=== PATIENT | male | born 1955 | race Caucasian/White ===

== ENCOUNTER 2017-08-16 12:42 | Outpatient (CLI) | payer OTHER ==
[2017-08-16] MEDS ORDERED: ALBUTEROL NEB 2.5 MG/3 ML INH ONE (14:00)
== END 2017-08-16 12:43 | disposition home or self-care (01) ==
LOC: RT 12:42
PROVIDERS: ATTEND Family Medicine
DX: J20.9 Acute bronchitis, unspecified (principal)
CPT/HCPCS: 94010; 94729

== ENCOUNTER 2019-02-15 09:05 | Day surgery (SDC) | payer MEDICARE, OTHER ==
[2019-02-15] MEDS ORDERED: CEFAZOLIN SODIUM IN 0.9 % NACL 2 GM/100 ML BAG IV ONE (09:06)
--- NOTE | 2019-02-15 09:32 | ANESTHESIA ---
Pre-Anesthesia VS, & Labs - Diagnosis umbilical hernia - Procedure umbilical hernia repair with mesh Vital Signs: Temp Pulse Resp BP Pulse Ox 37 C 101 H 20 138/100 H 95 02/15/19 09:11 02/15/19 09:11 02/15/19 09:11 02/15/19 09:11 02/15/19 09:11 Height 5 ft 7 in Weight (kg) 91.1 kg - NPO >8 hours Home Medications and Allergies Home Medications: Ambulatory Orders No Known Home Medications 01/29/19 No Known Home Medications 01/29/19 Allergies/Adverse Reactions: Allergies Allergy/AdvReac Type Severity Reaction Status Date / Time No Known Drug Allergies Allergy Verified 01/29/19 11:33 Anes History & Medical History - Anesthetic History Anesthesia Complications: reports: No previous complications Family history of Anesthesia Complications: Denies - Medical History Cardiovascular: reports: None Pulmonary: reports: None Gastrointestinal: reports: Colon polyps Urinary: reports: None Musculoskeletal: reports: None Endocrine/Autoimmune: reports: None Skin: reports: None Smoking Status: Former smoker (quit 2 weeks ago) - Surgical History General: Colonoscopy Exam General: Alert Dental: WNL Mouth Opening: Greater than 4 Fingerbreadths Neck Mobility: Normal Mallampati classification: II Thyromental Distance: greater than 6 cm Respiratory: Lungs clear Cardiovascular: Regular rate, Normal S1, Normal S2 Plan Anesthesia Type: MAC Consent for Procedure(s) Verified and Reviewed: Yes Code Status: Attempt Resuscitation ASA classification: 2-Mild systemic disease Is this case an emergency?: Yes
[2019-02-15] MEDS ORDERED: LACTATED RINGERS 1,000 ML IV ONE ×3 (09:34→11:15)
[2019-02-15] MEDS ORDERED: ceFAZolin 1 GM VIAL ONE (09:47)
[2019-02-15] MEDS ORDERED: LIDOCAINE 1% 50 ML MDV ONE (09:47)
[2019-02-15] MEDS ORDERED: BUPIVACAINE 0.5%-EPI 1:200000 PF 10 ML VIAL ONE (09:47)
[2019-02-15] MEDS ORDERED: KETAMINE 500 MG/10 ML VIAL IVP ONE (09:48)
[2019-02-15] MEDS ORDERED: fentaNYL 100 MCG/2 ML VIAL IVP ONE (09:48)
[2019-02-15] MEDS ORDERED: LIDOCAINE-MPF 2% 5 ML VIAL IM ONE (09:48)
[2019-02-15] MEDS ORDERED: PROPOFOL 200 MG/20 ML VIAL IVP ONE (09:48)
[2019-02-15] MEDS ORDERED: MIDAZOLAM 2 MG/2 ML VIAL IVP ONE (09:48)
[2019-02-15] MEDS ORDERED: BUPIVACAINE 0.5%-EPI 1:200000 PF 30 ML VIAL SUBQ ONE (10:05)
[2019-02-15] MEDS ORDERED: LIDOCAINE 1% 50 ML MDV SUBQ ONE (10:06)
[2019-02-15] MEDS ORDERED: oxyCODONE 5 MG TABLET PO PRN (10:41)
[2019-02-15] MEDS ORDERED: IBUPROFEN 600 MG TABLET PO PRN (10:41)
[2019-02-15] MEDS ORDERED: ACETAMINOPHEN 325 MG TABLET PO PRN (10:41)
[2019-02-15] MEDS ORDERED: ONDANSETRON 4 MG/2 ML VIAL IVP PRN (10:41)
--- NOTE | 2019-02-15 11:28 | OPERATIVE REPORT ---
DATE OF SERVICE: 02/15/2019 Physician: Oneal Ash MD PREOPERATIVE DIAGNOSIS: Symptomatic umbilical hernia. POSTOPERATIVE DIAGNOSIS: Symptomatic incarcerated umbilical hernia. PROCEDURE PERFORMED: Open repair of same with Ventralex ST hernia patch. ANESTHESIA: Local plus monitored anesthesia care by Brian Machado CRNA. SURGEON: Oneal Ash MD ESTIMATED BLOOD LOSS: 5 mL COMPLICATIONS: None. FINDINGS: A 3 cm diameter hernia sac was present containing preperitoneal fat that was incarcerated. The umbilical fascial defect was 2 cm in diameter. A 4.[address] hernia patch was used for the reconstruction. INDICATIONS: Patient is a 63-year-old gentleman with a history of an increasingly painful and tender umbilical bulge. Evaluation revealed a partially reducible umbilical mass consistent with an umbilical hernia. He was advised to undergo repair with prosthetic mesh to reduce the risk of recurrence. TECHNIQUE: After informed consent, patient was taken to the operating room where he was sedated and monitored. Preoperative preparation included application of sequential calf compression boots and administration of 2 grams cefazolin intravenously within an hour of the incision. His abdomen had been clipped in the ASU and was prepped with iodoform solution, following which a periumbilical block was instituted using a total of 30 mL of a 50:50 combination of 1% lidocaine plain and 0.5% Marcaine with epinephrine. Patient's abdomen was then re-prepared with ChloraPrep solution and draped in the usual sterile fashion. A curvilinear transverse incision was made along the inferior edge of the umbilicus for a total distance of 4-5 cm and carried down through subcutaneous tissues. Hemostasis was achieved with electrocautery. The umbilical dermis was dissected off of the underlying hernia sac. The hernia sac was mobilized circumferentially down to the neck and the anterior fascia exposed circumferentially. The hernia sac was entered and contents initially could not be reduced. The fascial defect was enlarged laterally for an additional 0.5 cm. This allowed hernia contents to be reduced into the preperitoneal space, which was then enlarged circumferentially to allow placement of the 4.3 cm diameter Ventralex patch in the preperitoneal location, after the preperitoneal space had been adequately developed and hemostasis assured, the wound was irrigated with antibiotic solution containing 1 gram cefazolin per liter and the above- mentioned patch was soaked in antibiotic solution, then placed in a position in a preperitoneal location, following which using the straps to hold the mesh against the midline fascia. The fascial edges were reapproximated transversely with 3 interrupted 0 Ethibond sutures, incorporating the strap with each suture. Excess strap was excised and discarded. After the fascial edges had been reapproximated and hemostasis assured, the wound was again irrigated with antibiotic solution, following which wound closure was accomplished in layers using 2-0 Vicryl to reapproximate the umbilical dermis to the anterior fascia and to reapproximate the deep subcutaneous fat, followed by 3-0 Vicryl to reapproximate the superficial subcutaneous fatty tissue, followed by 4-0 Monocryl subcuticular skin closure, followed by Dermabond. The procedure was then terminated, and patient transferred out of the operating room in satisfactory condition. Sponge and needle counts were correct x2. No drains were used. cc: Sherwin Urena MD TD: 02/15/2019 10:50 [facility]
[2019-02-15] MEDS ORDERED: oxyCODONE 5 MG TABLET ONE (11:39)
[2019-02-15 12:39] VITALS: BP 118/90
== END 2019-02-15 09:06 | disposition home or self-care (01) ==
LOC: SDS 09:05
PROVIDERS: ATTEND Internal Medicine Gastroenterology
PROC: 0WUF0JZ Supplement Abdominal Wall with Synthetic Substitute, Open Approach (ICD-10-PCS; principal; 2019-02-15 10:30)
DX: K42.9 Umbilical hernia without obstruction or gangrene (principal); F17.210 Nicotine dependence, cigarettes, uncomplicated; H91.93 Unspecified hearing loss, bilateral; A60.00 Herpesviral infection of urogenital system, unspecified
CPT/HCPCS: 49587; A9270; C1781; J0690; J7120

== ENCOUNTER 2020-08-21 16:35 | Outpatient (CLI) | payer OTHER, MEDICARE | END 2020-08-21 16:36 | disposition home or self-care (01) | LOC: COV 16:35 | PROVIDERS: ATTEND Ophthalmology | DX: Z01.812 Encounter for preprocedural laboratory examination (principal); H25.812 Combined forms of age-related cataract, left eye; Z20.822 Contact with and (suspected) exposure to COVID-19 ==

== ENCOUNTER 2020-08-24 08:01 | Day surgery (SDC) | payer OTHER, MEDICARE ==
[~2020-08-24 08:01] MED LIST: KETOROLAC 0.45% OPHTH DROPS ONE; PHENYLEPHRINE 2.5% OPHTH 2 ML DROPS ONE; PROPARACAINE 0.5% OPHTH DROPS 15 ML ONE
[2020-08-24] MEDS ORDERED: LACTATED RINGERS 500 ML IV ONE ×2 (08:09→09:30)
[2020-08-24] MEDS ORDERED: CYCLOPENTOLATE 2% OPHTH DROPS 2 ML LEFTEYE ONE (08:29)
[2020-08-24] MEDS ORDERED: BSS/LIDOCAINE/EPINEPHRINE 1 ML SYRINGE IO ONE (08:30)
[2020-08-24] MEDS ORDERED: TRIAMCIN/MOXIFLOX OPHTHALMIC 0.6 ML VIAL IO ONE ×2 (08:30→11:20)
[2020-08-24] MEDS ORDERED: CHONDR SULF/HYALURONATE SYRINGE IO ONE (08:30)
[2020-08-24] MEDS ORDERED: VANCOMYCIN OPHTHALMI 8MG/0.8ML 8 MG/0.8 ML SYRINGE IO ONE ×2 (08:30→11:21)
[2020-08-24] MEDS ORDERED: BRIMONIDINE 0.2% OPHTH DROPS 5 ML OPTH ONE (08:30)
[2020-08-24] MEDS ORDERED: EPINEPHrine 1 MG/ML AMP IR ONE (08:30)
[2020-08-24] MEDS ORDERED: TIMOLOL 0.5% OPHTH DROPS OPTH ONE (08:30)
[2020-08-24] MEDS ORDERED: PROPARACAINE 0.5% OPHTH DROPS 15 ML EACHEYE ONE (08:30)
--- NOTE | 2020-08-24 08:49 | ANESTHESIA ---
Pre-Anesthesia VS, & Labs - Diagnosis L cataract - Procedure L PhacoIOL Vital Signs: Temp Pulse Resp BP Pulse Ox 36.6 C 93 18 157/90 H 97 08/24/20 08:21 08/24/20 08:21 08/24/20 08:21 08/24/20 08:21 08/24/20 08:21 Height: 5 ft 7 in Weight (kg): 90 kg Body Mass Index: 31.1 BMI Classification: Obese - NPO >8 hours Home Medications and Allergies Home Medications: Ambulatory Orders Lisinopril/Hydrochlorothiazide [Zestoretic 10-12.5 mg Tablet] 1 each PO DAILY 0 08/24/20 Lisinopril/Hydrochlorothiazide [Zestoretic 10-12.5 mg Tablet] 1 each PO DAILY 08/24/20 Allergies/Adverse Reactions: Allergies Allergy/AdvReac Type Severity Reaction Status Date / Time No Known Drug Allergies Allergy Verified 08/24/20 08:17 Anes History & Medical History - Anesthetic History Anesthesia Complications: reports: No previous complications Family history of Anesthesia Complications: Denies Family history of Malignant Hyperthermia: Denies - Medical History Cardiovascular: reports: None Pulmonary: reports: None Gastrointestinal: reports: Colon polyps Urinary: reports: None Musculoskeletal: reports: None Endocrine/Autoimmune: reports: None Skin: reports: None Smoking Status: Former smoker (quit 2 weeks ago) - Surgical History General: reports: Colonoscopy Exam General: Alert, Oriented x3 Dental: WNL Mouth Openin Fingerbreadth Neck Mobility: Normal Mallampati classification: II Thyromental Distance: 4-6 cm Respiratory: Lungs clear Cardiovascular: Regular rate Plan Anesthesia Type: MAC Consent for Procedure(s) Verified and Reviewed: Yes Code Status: Attempt Resuscitation ASA classification: 2-Mild systemic disease Is this case an emergency?: No
[2020-08-24] MEDS ORDERED: MIDAZOLAM 2 MG/2 ML VIAL ONE ×2 (09:00→09:24)
[2020-08-24 09:47] VITALS: BP 142/84
--- NOTE | 2020-08-24 11:03 | OPERATIVE REPORT ---
DATE OF SERVICE: 08/24/2020 Physician: Uche Zamora MD PREOPERATIVE DIAGNOSIS: Complex, visually significant cataract, left eye. Complex due to a small pupil requiring mechanical pupil expansion with a Malyugin ring. This was his first cataract surgery. POSTOPERATIVE DIAGNOSIS: Complex, visually significant cataract, left eye. Complex due to a small pupil requiring mechanical pupil expansion with a Malyugin ring. This was his first cataract surgery. PROCEDURE: Phacoemulsification with posterior chamber intraocular lens implant, left eye. SURGEON: Uche Zamora MD. ANESTHESIA: Monitored anesthesia care. COMPLICATIONS: None. OPERATIVE INDICATIONS: This is a 64-year-old man with progressive vision loss in the left eye due to 1+ to 2+ nuclear sclerotic and 2+ anterior subcapsular cataract. Best corrected visual acuity was 20/40 with glare to hand motion vision in the left eye. Indications for surgery were overall decrease in vision, difficulty reading, difficulty tracking a golf ball, and foggy vision per patient. He was consented at length concerning risks and benefits of cataract surgery, after which he expressed a desire to proceed with surgery. OPERATIVE PROCEDURE: The patient was taken into OR #3 and placed under monitored anesthesia care. A surgical timeout was conducted, confirming correct patient, correct procedure, and correct surgical site. He was given topical anesthesia and prepped and draped in the usual sterile fashion. The eye was entered at the 6 o'clock and 3 o'clock positions. Intracameral Shugarcaine was injected into the anterior chamber followed by Viscoat. Because of the small pupil, a Malyugin ring was injected into the anterior chamber and engaged the pupil at 4 points to mechanically dilate the pupil. A continuous-tear curvilinear capsulorrhexis was performed. The nucleus was hydrodissected and phacoemulsified. The cortex was evacuated using automated infusion and aspiration. Provisc was injected in the capsular bag and a 21.0 diopter intraocular lens inserted in the bag. The Malyugin ring was then disengaged from the pupillary margin and removed from the anterior chamber. Infusion and aspiration were used to evacuate the viscoelastic materials. The eye was inflated to physiologic pressure using balanced salt solution and found to be watertight. Approximately 0.25 mL of a mixture of triamcinolone and moxifloxacin was injected transsclerally into the vitreous in the inferotemporal quadrant. An additional 0.55 mL of a mixture of triamcinolone, moxifloxacin, and vancomycin was injected subconjunctivally in the superior quadrant for infection and inflammation prophylaxis. Wound integrity was checked with Weck- Maria G sponges. The patient was taken from the operating room in good condition and given postoperative instructions. TD: 08/24/2020 11:01 MTDNabila
[2020-08-24] MEDS ORDERED: TIMOLOL 0.5% OPHTH DROPS ONE (11:20)
[2020-08-24] MEDS ORDERED: BRIMONIDINE 0.2% OPHTH DROPS 5 ML ONE (11:20)
[2020-08-24] MEDS ORDERED: EPINEPHrine 1 MG/ML AMP ONE (11:20)
[2020-08-24] MEDS ORDERED: BSS/LIDOCAINE/EPINEPHRINE 1 ML SYRINGE ONE (11:21)
--- NOTE | 2020-08-24 18:24 | ANESTHESIA POST OP EVALUATION ---
Anesthesia Post Eval - Post Anesthesia Eval Vitals: Last Vital Signs Temp 37.0 C 08/24/20 09:47 Pulse 85 08/24/20 09:47 Resp 16 08/24/20 09:47 BP 142/84 H 08/24/20 09:47 Pulse Ox 96 08/24/20 09:47 CV Function Including HR & BP: positive: Stable Pain Control: positive: Satisfactory Nausea & Vomiting: positive: Negative Mental Status: positive: Baseline Respiratory Status: Airway Patent Hydration Status: Satisfactory Anesthesia Complications: positive: None
== END 2020-08-24 08:02 | disposition home or self-care (01) ==
LOC: SDS 08:01
PROVIDERS: ATTEND Ophthalmology
DX: H25.811 Combined forms of age-related cataract, right eye (principal); I10 Essential (primary) hypertension; E66.9 Obesity, unspecified; Z68.31 Body mass index [BMI] 31.0-31.9, adult; F17.200 Nicotine dependence, unspecified, uncomplicated
CPT/HCPCS: 66982; A9270; J3490; J7120

== ENCOUNTER 2020-11-21 08:00 | Outpatient (CLI) | payer MEDICARE, OTHER ==
[2020-11-21 18:04] LABS: BASOPHILS % (AUTO) 0.5 %; EOSINOPHILS # (AUTO) 0.1 10^3/uL (0.0-0.7); EOSINOPHILS % (AUTO) 1.6 %; HCT - HEMATOCRIT 47.1 % (42.0-52.0); HGB - HEMOGLOBIN 16.3 g/dL (14.0-18.0); LYMPHOCYTES # (AUTO) 1.7 10^3/uL (1.5-3.5); LYMPHOCYTES % (AUTO) 21.7 %; MEAN CORPUSCULAR HEMOGLOBIN 33.1 pg (27.0-31.0); MEAN CORPUSCULAR HGB CONC 34.6 g/dL (32.0-36.0); MEAN CORPUSCULAR VOLUME 95.7 fL (80.0-94.0); MEAN PLATELET VOLUME 11.5 fL (7.4-11.4); MONOCYTES # (AUTO) 0.8 10^3/uL (0.0-1.0); MONOCYTES % (AUTO) 9.5 %; NEUTROPHILS # (AUTO) 5.3 10^3/uL (1.5-6.6); NEUTROPHILS % (AUTO) 66.4 %; PLT - PLATELET COUNT 206 10^3/uL (130-450); RED BLOOD COUNT 4.92 10^6/uL (4.70-6.10); RED CELL DISTRIBUTION WIDTH 12.5 % (12.0-15.0)
[2020-11-21 18:25] LABS: ALBUMIN 4.3 g/dL (3.2-5.5); ALBUMIN/GLOBULIN RATIO 1.5 (1.0-2.2); ALKALINE PHOSPHATASE 54 IU/L (42-121); ALT ALANINE AMINOTRANSFERASE 25 IU/L (10-60); AST ASPARTATE AMINOTRANSFERASE 21 IU/L (10-42); BILIRUBIN,TOTAL 0.8 mg/dL (0.2-1.0); BUN - BLOOD UREA NITROGEN 11 mg/dL (6-20); CALCIUM 8.7 mg/dL (8.5-10.3); CARBON DIOXIDE - CO2 23 mmol/L (21-32); CHLORIDE 103 mmol/L (101-111); CHOL/HDL RATIO 2.8 (<5.0); CHOLESTEROL 199 mg/dL; CREATININE 0.9 mg/dL (0.6-1.2); GFR - MDRD 84 (>89); GLUCOSE 104 mg/dL (70-100); HDL CHOLESTEROL 71 mg/dL; LDL CHOLESTEROL,CALCULATED 100 mg/dL; LDL/HDL RATIO 1.4 (<3.6); POTASSIUM 3.7 mmol/L (3.5-5.0); SODIUM 134 mmol/L (135-145); TOTAL PROTEIN 7.1 g/dL (6.7-8.2); TRIGLYCERIDES 138 mg/dL; VLDL CHOLESTEROL 28 mg/dL
[2020-11-21 18:29] LABS: THYROID STIMULATING HORMONE 1.73 uIU/mL (0.34-5.60)
== END 2020-11-21 23:59 | disposition home or self-care (01) ==
LOC: LAB.WCP 08:00
PROVIDERS: ATTEND Family Medicine
DX: I10 Essential (primary) hypertension (principal)
CPT/HCPCS: 36415; 80053; 80061; 83721; 84153; 84443; 85025

== ENCOUNTER 2021-05-04 09:10 | Day surgery (SDC) | payer MEDICARE, OTHER ==
[2021-05-04] MEDS ORDERED: LACTATED RINGERS 1,000 ML IV ONE ×2 (09:49→12:11)
--- NOTE | 2021-05-04 10:16 | ANESTHESIA ---
Pre-Anesthesia VS, & Labs - Diagnosis screening - Procedure colonoscopy Vital Signs: Temp Pulse Resp BP Pulse Ox 36.4 C L 92 14 153/91 H 97 05/04/21 09:29 05/04/21 09:29 05/04/21 09:29 05/04/21 09:29 05/04/21 09:29 Height: 5 ft 7 in Weight (kg): 95.5 kg Body Mass Index: 33.0 BMI Classification: Obese - NPO >8 hours - Lab Results Lab results reviewed: Yes Home Medications and Allergies Home Medications: Ambulatory Orders buPROPion [Wellbutrin Xl] 150 mg PO DAILY 05/03/21 Lisinopril/Hydrochlorothiazide [Zestoretic 10-12.5 mg Tablet] 1 each PO DAILY 08/24/20 buPROPion [Wellbutrin Xl] 150 mg PO DAILY 05/03/21 Allergies/Adverse Reactions: Allergies Allergy/AdvReac Type Severity Reaction Status Date / Time No Known Drug Allergies Allergy Verified 08/24/20 08:17 Anes History & Medical History - Anesthetic History Anesthesia Complications: reports: No previous complications Family history of Anesthesia Complications: Denies Family history of Malignant Hyperthermia: Denies - Medical History Cardiovascular: reports: Hypertension Pulmonary: reports: None Gastrointestinal: reports: Colon polyps Urinary: reports: Other Musculoskeletal: reports: None Endocrine/Autoimmune: reports: None Skin: reports: None Smoking Status: Former smoker (quit 2 weeks ago) - Surgical History General: reports: Colonoscopy, Other Exam General: Alert, Oriented x3, Cooperative Dental: WNL Mouth Openin Fingerbreadth Mallampati classification: II Thyromental Distance: 4-6 cm Respiratory: Lungs clear, Normal breath sounds, No respiratory distress Cardiovascular: Regular rate Neurological: Normal speech Mental/Cognitive Status: Alert/Oriented X3, Normal for patient Cognitive Status: Within normal limits Plan Anesthesia Type: Total IV Consent for Procedure(s) Verified and Reviewed: Yes Code Status: Attempt Resuscitation ASA classification: 2-Mild systemic disease Is this case an emergency?: No
[2021-05-04] MEDS ORDERED: LIDOCAINE-MPF 2% 5 ML VIAL ONE (10:55)
[2021-05-04] MEDS ORDERED: PROPOFOL 500 MG/50 ML 500 MG/50 ML VIAL ONE (10:55)
[2021-05-04] MEDS ORDERED: PROPOFOL 200 MG/20 ML VIAL IVP ONE ×2 (11:27→11:46)
[2021-05-04 12:36] VITALS: BP 137/87
--- NOTE | 2021-05-04 13:50 | ANESTHESIA POST OP EVALUATION ---
Anesthesia Post Eval - Post Anesthesia Eval Vitals: Last Vital Signs Temp 36.5 C 05/04/21 12:35 Pulse 86 05/04/21 12:35 Resp 16 05/04/21 12:35 BP 137/87 H 05/04/21 12:35 Pulse Ox 96 05/04/21 12:35 CV Function Including HR & BP: Stable Pain Control: Satisfactory Nausea & Vomiting: Negative Mental Status: Baseline Respiratory Status: Airway Patent Hydration Status: Satisfactory Anesthesia Complications: None
== END 2021-05-04 09:11 | disposition home or self-care (01) ==
LOC: SDS 09:10
PROVIDERS: ATTEND Surgery
PROC: 0DBN8ZZ Excision of Sigmoid Colon, Via Natural or Artificial Opening Endoscopic (ICD-10-PCS; 2021-05-04)
PROC: 0DBL8ZZ Excision of Transverse Colon, Via Natural or Artificial Opening Endoscopic (ICD-10-PCS; 2021-05-04)
PROC: 0DBP8ZZ Excision of Rectum, Via Natural or Artificial Opening Endoscopic (ICD-10-PCS; 2021-05-04)
PROC: 0DBK8ZZ Excision of Ascending Colon, Via Natural or Artificial Opening Endoscopic (ICD-10-PCS; principal; 2021-05-04 10:30)
DX: Z12.11 Encounter for screening for malignant neoplasm of colon (principal); D12.3 Benign neoplasm of transverse colon; D12.2 Benign neoplasm of ascending colon; D12.7 Benign neoplasm of rectosigmoid junction; D12.8 Benign neoplasm of rectum; K57.30 Diverticulosis of large intestine without perforation or abscess without bleeding; Z87.891 Personal history of nicotine dependence; E66.9 Obesity, unspecified; Z68.33 Body mass index [BMI] 33.0-33.9, adult; F10.99 Alcohol use, unspecified with unspecified alcohol-induced disorder
CPT/HCPCS: 45380; 45385; J7120

== ENCOUNTER 2021-07-30 15:06 | Outpatient (CLI) | payer MEDICARE, OTHER | END 2021-07-30 15:07 | disposition home or self-care (01) | LOC: LAB.N 15:06 | DX: C61 Malignant neoplasm of prostate (principal) | CPT/HCPCS: 36415; 84153 ==

== ENCOUNTER 2022-05-30 13:10 | Outpatient (CLI) | payer MEDICARE, OTHER | END 2022-05-30 13:11 | disposition home or self-care (01) | LOC: LAB.N 13:10 | PROVIDERS: ATTEND Radiology Radiation Oncology | DX: C61 Malignant neoplasm of prostate (principal) | CPT/HCPCS: 36415; 84153 ==

== ENCOUNTER 2022-06-05 11:37 | Outpatient (CLI) | payer MEDICARE, OTHER ==
[2022-06-05 18:06] LABS: BASOPHILS % (AUTO) 0.5 %; EOSINOPHILS # (AUTO) 0.1 10^3/uL (0.0-0.7); EOSINOPHILS % (AUTO) 1.5 %; HGB - HEMOGLOBIN 15.1 g/dL (14.0-18.0); LYMPHOCYTES # (AUTO) 1.2 10^3/uL (1.5-3.5); LYMPHOCYTES % (AUTO) 19.6 %; MEAN CORPUSCULAR HEMOGLOBIN 34.2 pg (27.0-31.0); MEAN CORPUSCULAR HGB CONC 34.3 g/dL (32.0-36.0); MEAN CORPUSCULAR VOLUME 99.5 fL (80.0-94.0); MEAN PLATELET VOLUME 11.6 fL (7.4-11.4); MONOCYTES # (AUTO) 0.7 10^3/uL (0.0-1.0); MONOCYTES % (AUTO) 11.8 %; NEUTROPHILS # (AUTO) 3.9 10^3/uL (1.5-6.6); NEUTROPHILS % (AUTO) 66.3 %; PLT - PLATELET COUNT 198 10^3/uL (130-450); RED BLOOD COUNT 4.42 10^6/uL (4.70-6.10); RED CELL DISTRIBUTION WIDTH 12.6 % (12.0-15.0); WHITE BLOOD COUNT 5.9 x10^3/uL (4.8-10.8)
[2022-06-05 18:18] LABS: ALBUMIN 3.6 g/dL (3.2-5.5); ALBUMIN/GLOBULIN RATIO 1.1 (1.0-2.2); ALKALINE PHOSPHATASE 48 IU/L (42-121); ALT ALANINE AMINOTRANSFERASE 33 IU/L (10-60); AST ASPARTATE AMINOTRANSFERASE 26 IU/L (10-42); BILIRUBIN,TOTAL 0.9 mg/dL (0.2-1.0); BUN - BLOOD UREA NITROGEN 11 mg/dL (6-20); CALCIUM 8.9 mg/dL (8.5-10.3); CARBON DIOXIDE - CO2 27 mmol/L (21-32); CHLORIDE 102 mmol/L (101-111); CHOL/HDL RATIO 2.5 (<5.0); CHOLESTEROL 183 mg/dL; GFR - MDRD 74 (>89); GLUCOSE 106 mg/dL (70-100); HDL CHOLESTEROL 72 mg/dL; LDL CHOLESTEROL,CALCULATED 93 mg/dL; LDL/HDL RATIO 1.3 (<3.6); POTASSIUM 4.2 mmol/L (3.5-5.0); SODIUM 137 mmol/L (135-145); TOTAL PROTEIN 6.8 g/dL (6.7-8.2); TRIGLYCERIDES 92 mg/dL; VLDL CHOLESTEROL 18 mg/dL
[2022-06-05 18:28] LABS: THYROID STIMULATING HORMONE 1.84 uIU/mL (0.34-5.60)
== END 2022-06-05 11:38 | disposition home or self-care (01) ==
LOC: LAB.N 11:37
PROVIDERS: ATTEND Family Medicine
DX: I10 Essential (primary) hypertension (principal); C61 Malignant neoplasm of prostate; F32.A Depression, unspecified; Z13.220 Encounter for screening for lipoid disorders
CPT/HCPCS: 36415; 80053; 80061; 83721; 84443; 85025

== ENCOUNTER 2022-08-08 08:23 | Day surgery (SDC) | payer MEDICARE, OTHER ==
[~2022-08-08 08:23] MED LIST changes: +CYCLOPENTOLATE 1% OPHTH DROPS 2 ML ONE
[2022-08-08] MEDS ORDERED: LACTATED RINGERS 1,000 ML IV ONE (08:35)
[2022-08-08] MEDS ORDERED: EPINEPHrine 1 MG/ML AMP ONE (09:53)
[2022-08-08] MEDS ORDERED: BRIMONIDINE 0.2% OPHTH DROPS 5 ML ONE (09:53)
[2022-08-08] MEDS ORDERED: TRIAMCIN/MOXIFLOX OPHTHALMIC 0.6 ML VIAL IO ONE ×2 (09:53→10:18)
[2022-08-08] MEDS ORDERED: TIMOLOL 0.5% OPHTH DROPS ONE (09:54)
[2022-08-08] MEDS ORDERED: BSS/LIDOCAINE/EPINEPHRINE 1 ML VIAL ONE (09:54)
[2022-08-08] MEDS ORDERED: VANCOMYCIN OPHTH (TOPICAL) 10 MG/ML SYRINGE ONE (09:54)
--- NOTE | 2022-08-08 10:08 | ANESTHESIA ---
Pre-Anesthesia VS, & Labs - Diagnosis R cataract - Procedure R PhacoIOL Vital Signs: Temp Pulse Resp BP Pulse Ox O2 Flow Rate 36.4 C L 87 14 137/83 H 97 08/08/22 08:38 08/08/22 08:38 08/08/22 08:38 08/08/22 08:38 08/08/22 08:38 Height: 5 ft 7 in Weight (kg): 92 kg Body Mass Index: 31.7 BMI Classification: Obese - NPO >8 hours Home Medications and Allergies Lisinopril/Hydrochlorothiazide [Zestoretic 10-12.5 mg Tablet] 1 each PO DAILY 08/24/20 buPROPion [Wellbutrin Xl] 150 mg PO DAILY 05/03/21 Allergies/Adverse Reactions: Allergies Allergy/AdvReac Type Severity Reaction Status Date / Time No Known Drug Allergies Allergy Verified 08/08/22 08:42 Anes History & Medical History - Anesthetic History Anesthesia Complications: reports: No previous complications Family history of Anesthesia Complications: Denies Family history of Malignant Hyperthermia: Denies - Medical History Cardiovascular: reports: Hypertension Pulmonary: reports: None Gastrointestinal: reports: Colon polyps Urinary: reports: Other (Prostate CA with radiation 01/2022) Musculoskeletal: reports: None Endocrine/Autoimmune: reports: None Skin: reports: None Smoking Status: Former smoker (quit 2 weeks ago) History of Cancer?: Yes (prostate) - Surgical History General: reports: Colonoscopy, Other Eyes Ears Nose Throat (EENT): reports: Cataracts Exam General: Alert, Oriented x3, Cooperative Dental: WNL Mouth Openin Fingerbreadth Neck Mobility: Normal Mallampati classification: II Thyromental Distance: 4-6 cm Respiratory: Lungs clear Cardiovascular: Regular rate Plan Anesthesia Type: MAC Consent for Procedure(s) Verified and Reviewed: Yes Code Status: Attempt Resuscitation ASA classification: 3-Severe systemic disease Is this case an emergency?: No
[2022-08-08] MEDS ORDERED: MIDAZOLAM 2 MG/2 ML VIAL ONE (10:12)
[2022-08-08] MEDS ORDERED: EPINEPHrine 1 MG/ML AMP IR ONE (10:18)
[2022-08-08] MEDS ORDERED: BSS/LIDOCAINE/EPINEPHRINE 1 ML SYRINGE IO ONE (10:18)
[2022-08-08] MEDS ORDERED: TIMOLOL 0.5% OPHTH DROPS OPTH ONE (10:18)
[2022-08-08] MEDS ORDERED: BRIMONIDINE 0.2% OPHTH DROPS 5 ML OPTH ONE (10:18)
[2022-08-08] MEDS ORDERED: PROPARACAINE 0.5% OPHTH DROPS 15 ML RIGHTEYE ONE (10:19)
[2022-08-08] MEDS ORDERED: VANCOMYCIN OPHTH (TOPICAL) 10 MG/ML SYRINGE TOP ONE (10:19)
[2022-08-08] MEDS ORDERED: LACTATED RINGERS 800 ML IV ONE (10:42)
--- NOTE | 2022-08-08 10:54 | OPERATIVE REPORT ---
Operative Report - Other Other Information/Narrative: Date of Surgery: 08/08/22 Preop Dx: Complex, visually significant cataract right eye. Complex due to small pupil requiring mechanical dilation using a Malyugin ring. Cataract surgery was performed in the left eye on . Postop Dx: Same Procedure: Phacoemulsification with posterior chamber intraocular lens implant right eye Surgeon: Dr. Uche Zamora Anesthesia: Monitored anesthesia care Complications: None Operative Indications: This is a 66-year-old M with progressive vision loss in the right eye due to 2+ nuclear sclerotic and 1-2+ cortical cataract. Best corrected visual acuity was 20/40 with glare to 20/50 vision in the right eye. Indications for surgery were: - Difficulty seeing street signs - Difficulty driving in low light or at night - Difficulty driving at night because of headlights from other vehicles - Difficulty tracking a golf ball The patient was consented at length concerning the risks and benefits of cataract surgery after which the patient expressed a desire to proceed with surgery. Operative Procedure: The patient was taken into OR#3 and placed under monitored anesthesia care. A surgical time-out was conducted confirming correct patient, correct procedure, and correct surgical site. The patient was given topical anesthesia and then prepped and draped in the usual sterile fashion. The eye was entered at the 6 and 3 oclock positions. Intracameral Shugarcaine was injected into the anterior chamber followed by a dispersive viscoelastic. A Malyugin ring was injected into the anterior chamber and engaged with the pupillary margin at four points to expand the pupil. A continuous-tear curvilinear capsulorhexis was performed. The nucleus was hydrodissected and phacoemulsified. The cortex was evacuated using automated infusion and aspiration. A cohesive viscoelastic was injected into the capsular bag and a 21.0 diopter intraocular lens was inserted into the bag. The Malyugin ring was disengaged from the pupillary margin and removed from the anterior chamber. Infusion and aspiration were used to evacuate the viscoelastic materials from the eye. The wounds were hydrated and the eye inflated to physiologic pressure using balanced salt solution. Approximately 0.25ml of a mixture of triamcinolone and moxifloxacin was injected trans-sclerally into the vitreous in the inferotemporal quadrant using a 30 gauge cannula. An additional 0.25ml of a mixture of triamcinolone and moxifloxacin was injected subconjunctivally in the superior quadrant for infection and inflammation prophylaxis. Wound integrity was checked with Weck-Maria G sponges and the wound found to be leaking. A 10-0 nylon suture was placed across the wound and the leaking stopped. The patient was taken from the operating room in good condition and given post-op instructions.
[2022-08-08 10:56] VITALS: BP 125/74
--- NOTE | 2022-08-08 16:44 | ANESTHESIA POST OP EVALUATION ---
Anesthesia Post Eval - Post Anesthesia Eval Vitals: Last Vital Signs Temp 36.2 C L 08/08/22 10:55 Pulse 80 08/08/22 10:55 Resp 16 08/08/22 10:55 BP 125/74 08/08/22 10:55 Pulse Ox 95 08/08/22 10:55 O2 Flow Rate CV Function Including HR & BP: Stable Pain Control: Satisfactory Nausea & Vomiting: Negative Mental Status: Baseline Respiratory Status: Airway Patent Hydration Status: Satisfactory Anesthesia Complications: None
== END 2022-08-08 08:24 | disposition home or self-care (01) ==
LOC: SDS 08:23
PROVIDERS: ATTEND Ophthalmology
DX: H25.811 Combined forms of age-related cataract, right eye (principal); I10 Essential (primary) hypertension; Z98.42 Cataract extraction status, left eye; E66.9 Obesity, unspecified; Z68.31 Body mass index [BMI] 31.0-31.9, adult; Z87.891 Personal history of nicotine dependence; Z92.3 Personal history of irradiation
CPT/HCPCS: 66982; A9270; J3490; J7120

== ENCOUNTER 2024-01-16 08:18 | Day surgery (SDC) | payer MEDICARE, OTHER ==
[2024-01-16] MEDS: LACTATED RINGERS 1,000 ML IV ONE ×2 (08:25→10:23)
[2024-01-16] MEDS ORDERED: LIDOCAINE-MPF 2% 5 ML VIAL ONE (09:00)
[2024-01-16] MEDS ORDERED: PROPOFOL 500 MG/50 ML 500 MG/50 ML VIAL ONE (09:00)
--- NOTE | 2024-01-16 09:04 | ANESTHESIA ---
Pre-Anesthesia VS, & Labs - Diagnosis history of polyps - Procedure colonoscopy Vital Signs: Temp Pulse Resp BP Pulse Ox O2 Flow Rate 36.5 C 101 H 18 140/91 H 93 01/16/24 08:25 01/16/24 08:25 01/16/24 08:25 01/16/24 08:25 01/16/24 08:25 Height: 5 ft 7 in Weight (kg): 88.4 kg Body Mass Index: 30.5 BMI Classification: Obese - NPO Last Fluid Intake: 0330 Last Food Intake: >8hr Home Medications and Allergies Lisinopril/Hydrochlorothiazide [Zestoretic 10-12.5 mg Tablet] 1 each PO DAILY 08/24/20 buPROPion [Wellbutrin Xl] 150 mg PO DAILY 05/03/21 Allergies/Adverse Reactions: Allergies Allergy/AdvReac Type Severity Reaction Status Date / Time No Known Drug Allergies Allergy Verified 08/08/22 08:42 Anes History & Medical History - Anesthetic History Anesthesia Complications: reports: No previous complications - Medical History Cardiovascular: reports: Hypertension (lisinopril this) Pulmonary: reports: None Gastrointestinal: reports: Colon polyps Urinary: reports: Other Musculoskeletal: reports: None Endocrine/Autoimmune: reports: None Skin: reports: None Smoking Status: Current every day smoker (trying to quit; currently 10 cigs per day) Psychosocial: reports: No issues indicated - Surgical History General: reports: Colonoscopy, Other Eyes Ears Nose Throat (EENT): reports: Cataracts Results - EKG Results EKG Comparison: Reviewed EKG Exam General: Alert, Oriented x3 Dental: WNL Mouth Openin Fingerbreadth Neck Mobility: Normal Mallampati classification: II Thyromental Distance: 4-6 cm Respiratory: Lungs clear Cardiovascular: Regular rate Plan Anesthesia Type: Total IV Consent for Procedure(s) Verified and Reviewed: Yes Code Status: Attempt Resuscitation ASA classification: 2-Mild systemic disease Is this case an emergency?: No
[2024-01-16] MEDS ORDERED: PROPOFOL 200 MG/20 ML VIAL IVP ONE ×3 (09:40→10:05)
[2024-01-16] MEDS ORDERED: fentaNYL 100 MCG/2 ML VIAL ONE (09:49)
--- NOTE | 2024-01-16 11:05 | ANESTHESIA POST OP EVALUATION ---
Anesthesia Post Eval - Post Anesthesia Eval Vitals: Last Vital Signs Temp 36.1 C L 01/16/24 10:23 Pulse 99 01/16/24 10:35 Resp 16 01/16/24 10:35 BP 116/59 L 01/16/24 10:35 Pulse Ox 93 01/16/24 10:35 O2 Flow Rate CV Function Including HR & BP: Stable Pain Control: Satisfactory Nausea & Vomiting: Negative Mental Status: Baseline Respiratory Status: Airway Patent Hydration Status: Satisfactory Anesthesia Complications: None
[2024-01-16 11:14] VITALS: BP 134/69; O2SAT 95
== END 2024-01-16 08:19 | disposition home or self-care (01) ==
LOC: SDS 08:18
PROVIDERS: ATTEND Surgery
PROC: 0DBL8ZX Excision of Transverse Colon, Via Natural or Artificial Opening Endoscopic, Diagnostic (ICD-10-PCS; 2024-01-16)
PROC: 0DBN8ZX Excision of Sigmoid Colon, Via Natural or Artificial Opening Endoscopic, Diagnostic (ICD-10-PCS; 2024-01-16)
PROC: 0DBP8ZX Excision of Rectum, Via Natural or Artificial Opening Endoscopic, Diagnostic (ICD-10-PCS; 2024-01-16)
PROC: 0DBK8ZX Excision of Ascending Colon, Via Natural or Artificial Opening Endoscopic, Diagnostic (ICD-10-PCS; principal; 2024-01-16 09:30)
DX: D12.2 Benign neoplasm of ascending colon (principal); D12.3 Benign neoplasm of transverse colon; D12.8 Benign neoplasm of rectum; K57.30 Diverticulosis of large intestine without perforation or abscess without bleeding; K62.89 Other specified diseases of anus and rectum; K63.5 Polyp of colon; E66.9 Obesity, unspecified; I10 Essential (primary) hypertension; F17.210 Nicotine dependence, cigarettes, uncomplicated; Z68.30 Body mass index [BMI] 30.0-30.9, adult
CPT/HCPCS: 45380; 45385; J7120